=== PATIENT | female | born 1940 | race Caucasian/White ===

== ENCOUNTER 2023-08-14 19:51 | Emergency (ER) | payer MEDICARE ==
[~2023-08-14] VITALS: Ht 167.6 cm; Wt 54.4 kg
[2023-08-14] MEDS ORDERED: ASPI81TA31 PO (20:18)
[2023-08-14] MEDS ORDERED: ATOR80TA PO (20:18)
[2023-08-14] MEDS ORDERED: LEVO112T5 PO (20:18)
[2023-08-14] MEDS ORDERED: TRAZ-257 PO (20:18)
[2023-08-14] MEDS ORDERED: [UNRECOGNIZED DRUG - OTHER] PO (20:18)
[2023-08-14 21:15] LABS: BASOPHILS # (AUTO) 0.1 K/UL (0.0-0.2); BASOPHILS % (AUTO) 0.7 % (0.0-2.0); EOSINOPHILS % (AUTO) 0.5 % (0.0-7.0); HEMATOCRIT 42.6 % (31.2-41.9); HEMOGLOBIN 14.6 g/dL (10.9-14.3); LYMPHOCYTES # (AUTO) 1.2 K/uL (0.8-4.8); LYMPHOCYTES % (AUTO) 15.8 % (20.5-51.5); MEAN CORPUSCULAR HEMOGLOBIN 32.6 uug (24.7-32.8); MEAN CORPUSCULAR HGB CONC 34 g/dL (32.3-35.6); MEAN CORPUSCULAR VOLUME 95.2 fL (75.5-95.3); MONOCYTES # (AUTO) 0.8 K/uL (0.1-1.30); MONOCYTES % (AUTO) 10.9 % (0.0-11.0); NEUTROPHILS # (AUTO) 5.4 K/uL (1.8-8.9); NEUTROPHILS % (AUTO) 72.1 % (38.5-71.5); PLATELET COUNT (AUTO) 189 K/uL (179-408); RED BLOOD CELL COUNT(AUTO) 4.47 MIL/uL (3.63-4.92); RED CELL DISTRIBUTION WIDTH 13.5 % (12.3-17.7); WHITE BLOOD COUNT (AUTO) 7.5 K/uL (3.8-11.8)
[2023-08-14 21:18] LABS: DIFFERENTIAL COMMENT 1
[2023-08-14 21:23] LABS: CALCIUM 9.7 mg/dL (8.5-10.1); POTASSIUM 3.4 mmol/L (3.5-5.1)
[2023-08-14 21:38] LABS: ALBUMIN 3.8 g/dL (3.4-5.0); BILIRUBIN,TOTAL 0.6 mg/dL (0.2-1.0); TOTAL PROTEIN, SERUM 8.2 g/dL (6.4-8.2)
[2023-08-14 23:51] VITALS: BP 115/68; TEMP 98.5; O2SAT 99
== END 2023-08-14 23:52 | disposition left against medical advice (07) ==
LOC: ER 19:55
DX: R55 Syncope and collapse (principal); E78.5 Hyperlipidemia, unspecified; E03.9 Hypothyroidism, unspecified; Z79.82 Long term (current) use of aspirin; Z79.899 Other long term (current) drug therapy
CPT/HCPCS: 36415; 70450; 71045; 83605; 84484; 85025; A4606; A4663